=== PATIENT | female | born 1985 | race Asian ===

== ENCOUNTER 2018-04-16 17:57 | Inpatient (IN) | payer SELFPAY ==
[~2018-04-16] VITALS: Ht 155 cm; Wt 49.9 kg
[2018-04-16] MEDS ORDERED: OXYTOCIN 20 UNITS in LACTATED RINGERS 1,000 ML IV SCH (18:06)
[2018-04-16] MEDS ORDERED: METHYLERGONOVINE 0.2 MG/ML AMP IM PRN (18:10)
[2018-04-16] MEDS ORDERED: NALBUPHINE 10 MG/ML AMP IVP PRN (18:10)
[2018-04-16] MEDS ORDERED: PROMETHAZINE 25 MG/ML VIAL IVP PRN (18:10)
[2018-04-16] MEDS ORDERED: CARBOPROST 250 MCG/ML AMP IM PRN (18:10)
[2018-04-16] MEDS ORDERED: OXYTOCIN 10 UNITS/ML VIAL IM SCH (18:35)
[2018-04-16 18:42] LABS: HEMATOCRIT 39.1 % (36-48); HEMOGLOBIN 12.6 g/dL (12.0-16.0); MEAN CORPUSCULAR HEMOGLOBIN 30 pg (27-31); MEAN CORPUSCULAR HGB CONC 32 g/dL (33-37); MEAN CORPUSCULAR VOLUME 91.6 fL (80-94); PLATELET COUNT (AUTO) 152 K/uL (140-450); RED BLOOD CELL COUNT(AUTO) 4.26 MIL/uL (4.20-5.40); RED CELL DISTRIBUTION WIDTH 16.6 % (11.6-13.7); WHITE BLOOD COUNT (AUTO) 16.6 K/uL (4.8-10.8)
[2018-04-16] MEDS ORDERED: BUPIVACAINE 0.125%/NS PREMIX 250 ML ONE (18:55)
[2018-04-16] MEDS: LACTATED RINGERS 1,000 ML IV SCH ×2 (19:05→19:15)
[2018-04-16 19:18] LABS: ANION GAP 13.4 (8-16); CARBON DIOXIDE 22.9 mmol/L (21-32); CREATININE 0.7 mg/dL (0.6-1.3); POTASSIUM 3.3 mmol/L (3.5-5.1)
[2018-04-16 19:24] LABS: ALBUMIN 2.4 g/dL (3.4-5.0); TOTAL BILIRUBIN 0.4 mg/dL (0.0-1.0)
[2018-04-16] MEDS ORDERED: PREN-546 PO (19:42)
[2018-04-16 20:08] LABS: LYMPHOCYTES % (MANUAL) 7 % (20-46); MONOCYTES % (MANUAL) 6 % (5-12)
[2018-04-16] MEDS ORDERED: OXYTOCIN 20 UNITS/LR PREMIX 1,000 ML IV ONE (20:15)
[2018-04-16] MEDS ORDERED: OXYTOCIN 10 UNITS/ML VIAL ONE ×2 (20:20→20:38)
[2018-04-17] MEDS ORDERED: OXYTOCIN 10 UNITS/ML VIAL IM PRN (01:25)
[2018-04-17] MEDS ORDERED: METHYLERGONOVINE 0.2 MG/ML AMP IM PRN (01:25)
[2018-04-17] MEDS ORDERED: MEASLES, MUMPS, AND RUBELLA 1 VIAL SQVAC PRN (01:25)
[2018-04-17] MEDS ORDERED: HYDROcodone/APAP 5/325 MG 1 TAB TAB PO PRN (01:25)
[2018-04-17] MEDS ORDERED: BENZOCAINE/MENTHOL 20%-0.5% 60 GM CAN TP PRN (01:25)
[2018-04-17] MEDS ORDERED: TEMAZEPAM 15 MG CAP PO PRN (01:25)
[2018-04-17] MEDS ORDERED: oxyCODONE/APAP 5/325 MG 1 TAB TAB PO PRN (01:25)
[2018-04-17] MEDS: IBUPROFEN 800 MG TAB PO PRN ×2 (04:21→08:32)
--- NOTE | 2018-04-17 10:32 | NUR ---
PATIENT HAS BEEN SCREENED AND CATEGORIZED LOW NUTRITION RISK. PATIENT WILL BE SEEN WITHIN 7 DAYS OF ADMISSION. 04/23/[address]
[2018-04-17] MEDS ORDERED: DOCUSATE SOD/SENNA 50/8.6 MG 1 TAB PO SCH (21:00)
[2018-04-18 06:58] LABS: HEMATOCRIT 34.6 % (36-48); HEMOGLOBIN 11.5 g/dL (12.0-16.0)
[2018-04-18] MEDS: IBUPROFEN 800 MG TAB PO PRN (12:43)
== END 2018-04-18 18:10 | disposition home or self-care (01) | DRG 775 ==
LOC: MLD 17:57 → MFCC 04-17 04:21
PROVIDERS: ADMIT Obstetrics & Gynecology; ATTEND Obstetrics & Gynecology
PROC: 10E0XZZ Delivery of Products of Conception, External Approach (ICD-10-PCS; principal; 2018-04-16)
PROC: 0W8NXZZ Division of Female Perineum, External Approach (ICD-10-PCS; 2018-04-16)
PROC: 00HU33Z Insertion of Infusion Device into Spinal Canal, Percutaneous Approach (ICD-10-PCS; 2018-04-16)
PROC: 3E0R3BZ Introduction of Anesthetic Agent into Spinal Canal, Percutaneous Approach (ICD-10-PCS; 2018-04-16)
PROC: 3E0234Z Introduction of Serum, Toxoid and Vaccine into Muscle, Percutaneous Approach (ICD-10-PCS; 2018-04-18)
DX: O69.1XX0 Labor and delivery complicated by cord around neck, with compression, not applicable or unspecified (principal); Z37.0 Single live birth; Z3A.38 38 weeks gestation of pregnancy; Z23 Encounter for immunization
CPT/HCPCS: 36415; 51702; 80053; 85018; 85025; 86592; 86886; 86900; 86901; 90715; C1758; J2590; J3490; J7120